=== PATIENT | male | born 1995 | race Caucasian/White ===

== ENCOUNTER 2017-06-08 15:06 | Emergency (ER) | payer OTHER ==
[~2017-06-08] VITALS: Ht 175.3 cm; Wt 78.0 kg
[2017-06-08 15:37] VITALS: BP 146/95; PULSE 96; RESP 16; TEMP 98.1; O2SAT 97
[2017-06-08] MEDS ORDERED: ZOFR8TAB4 SL (15:52)
[2017-06-08] MEDS ORDERED: TAMS5CAP PO (15:52)
[2017-06-08] MEDS ORDERED: HYDR-3366 PO (15:52)
[2017-06-08] MEDS ORDERED: SODIUM CHLOR 0.9% 1000 ML INJ 1,000 ML IV ONE (15:57)
[2017-06-08] MEDS ORDERED: MORPHINE SULFATE 4 MG/ML INJ IV PUSH ONE (16:00)
[2017-06-08] MEDS ORDERED: KETOROLAC TROMETHAMINE 30 MG/ML (IVP) VIAL IV PUSH ONE (16:00)
[2017-06-08] MEDS ORDERED: ONDANSETRON HCL 4 MG/2 ML VIAL IV PUSH ONE (16:00)
--- NOTE | 2017-06-08 16:17 | PD ---
HPI Chief Complaint: Flank/Kidney Pain Time Seen by Provider: 15:54 Travel History International Travel<30 days: No Contact w/Intl Traveler<30days: No Traveled to known affect area: No History of Present Illness HPI PATIENT COMES IN C/O RIGHT FLANK PAIN, RAD TO RLQ AREA, 8/10, ONGOING INTERMITTENTLY OVER THE PAST 5 DAYS OR SO. PATIENT DENIES ANY ALLEVIATING/ AGGRAVATING FACTORS. ALSO DENIES ANY ASSOC FACTORS SUCH FEVER/RASH/CP/HERNANDEZ/N/V /D/ NKDA PMHX:PLEURISY AND RECENTLY DX WITH KIDNEY STONE AT [facility] Past Medical History Respiratory: Yes (HX PLEURISY) Past Surgical History Surgical History: No Previous Surgery Social History Alcohol Use: No Tobacco Use: No Substance Use: No Allergies-Medications (Allergen,Severity, Reaction): Coded Allergies: No Known Allergies (Unverified , 06/08/17) Reported Meds & Prescriptions Reported Meds & Active Scripts Active Reported Zofran Odt (Ondansetron Odt) 8 Mg Tab 8 Mg SL Q8H PRN Flomax (Tamsulosin HCl) 0.4 Mg Cap 0.4 Mg PO DIRECTED [place] (Hydrocodone-Acetaminophen) 10-325 Mg Tab 1 Tab PO Q6H PRN Review of Systems General / Constitutional: No: Fever Eyes: No: Visual changes HENT: No: Headaches Cardiovascular: No: Chest Pain or Discomfort Respiratory: No: Shortness of Breath Gastrointestinal: Positive: Abdominal Pain (RLQ) Genitourinary: Positive: Flank Pain Musculoskeletal: No: Pain Skin: No Rash Neurologic: No: Weakness Psychiatric: No: Depression Endocrine: No: Polydipsia Hematologic/Lymphatic: No: Easy Bruising Physical Exam Narrative GENERAL: SKIN: Warm and dry. HEAD: Atraumatic. Normocephalic. EYES: Pupils equal and round. No scleral icterus. No injection or drainage. ENT: No nasal bleeding or discharge. Mucous membranes pink and moist. NECK: Trachea midline. No JVD. CARDIOVASCULAR: Regular rate and rhythm. RESPIRATORY: No accessory muscle use. Clear to auscultation. Breath sounds equal bilaterally. GASTROINTESTINAL: Abdomen soft, non-tender, nondistended. MUSCULOSKELETAL: Extremities without clubbing, cyanosis, or edema. No obvious deformities. NEUROLOGICAL: Awake and alert. No obvious cranial nerve deficits. Motor grossly within normal limits. Five out of 5 muscle strength in the arms and legs. Normal speech. PSYCHIATRIC: Appropriate mood and affect; insight and judgment normal. Data Data Last Documented VS Vital Signs Date Time Temp Pulse Resp B/P (MAP) Pulse Ox O2 Delivery O2 Flow Rate FiO2 06/08/17 15:37 98.1 96 16 146/95 (112) 97 Orders Orders Complete Blood Count With Diff (06/08/17 15:57) Comprehensive Metabolic Panel (06/08/17 15:57) Urinalysis - C+S If Indicated (06/08/17 15:57) Ct Abd/Pel W/O Iv Contrast (06/08/17 15:57) Ecg Monitoring (06/08/17 15:57) Iv Access Insert/Monitor (06/08/17 15:57) Ketorolac Inj (Toradol Inj) (06/08/17 16:00) Morphine Inj (Morphine Inj) (06/08/17 16:00) Ondansetron Inj (Zofran Inj) (06/08/17 16:00) Sodium Chlor 0.9% 1000 Ml Inj (Ns 1000 M (06/08/17 15:57) Lipase (06/08/17 15:57) Labs Laboratory Tests Test 06/08/17 16:05 White Blood Count 12.3 TH/MM3 Red Blood Count 4.65 MIL/MM3 Hemoglobin 14.5 GM/DL Hematocrit 42.0 % Mean Corpuscular Volume 90.4 FL Mean Corpuscular Hemoglobin 31.2 PG Mean Corpuscular Hemoglobin Concent 34.5 % Red Cell Distribution Width 12.8 % Platelet Count 204 TH/MM3 Mean Platelet Volume 7.7 FL Neutrophils (%) (Auto) 77.5 % Lymphocytes (%) (Auto) 12.0 % Monocytes (%) (Auto) 8.6 % Eosinophils (%) (Auto) 1.3 % Basophils (%) (Auto) 0.6 % Neutrophils # (Auto) 9.5 TH/MM3 Lymphocytes # (Auto) 1.5 TH/MM3 Monocytes # (Auto) 1.1 TH/MM3 Eosinophils # (Auto) 0.2 TH/MM3 Basophils # (Auto) 0.1 TH/MM3 CBC Comment DIFF FINAL Differential Comment MDM Medical Decision Making Medical Screen Exam Complete: Yes Emergency Medical Condition: Yes Medical Record Reviewed: Yes Differential Diagnosis PYELO V RENAL COLIC V APPY V COLITIS V DIVERTIC Narrative Course MILD LEUKOCYTOSIS WITHOUT MAJOR LEFT SHIFT. SIGNED OUT PENDING CT RESULTS AND CMP RESULTS TO DR BUCKLEY Diagnosis Primary Impression: ABDOMINAL PAIN Dewayne Funk MD Jun 08, 2017 16:17
[2017-06-08 16:54] LABS: AUTOMATED NEUTROPHIL # 9.5 TH/MM3 (1.8-7.7); BASOPHIL # 0.1 TH/MM3 (0-0.2); BASOPHIL % 0.6 % (0.0-2.0); EOSINOPHIL # 0.2 TH/MM3 (0-0.4); EOSINOPHIL % 1.3 % (0.0-4.0); HEMOGLOBIN 14.5 GM/DL (13.0-17.0); LYMPHOCYTE # 1.5 TH/MM3 (1.0-4.8); MEAN CELL VOLUME 90.4 FL (80.0-100.0); MEAN CORPUSCULAR HEMOGLOBIN 31.2 PG (27.0-34.0); MEAN CORPUSCULAR HGB CONC 34.5 % (32.0-36.0); MEAN PLATELET VOLUME 7.7 FL (7.0-11.0); MONO % 8.6 % (0.0-8.0); MONOCYTE # 1.1 TH/MM3 (0-0.9); NEUT % 77.5 % (16.0-70.0); PLATELET COUNT 204 TH/MM3 (150-450); RED BLOOD COUNT 4.65 MIL/MM3 (4.50-5.90); RED CELL DISTRIBUTION WIDTH 12.8 % (11.6-17.2); WHITE BLOOD COUNT 12.3 TH/MM3 (4.0-11.0)
[2017-06-08 17:06] LABS: AST (GOT) 23 U/L (15-37); BICARBONATE 29.9 MEQ/L (21.0-32.0); BLOOD UREA NITROGEN 10 MG/DL (7-18); CALCIUM 9.3 MG/DL (8.5-10.1); CHLORIDE 102 MEQ/L (98-107); CREATININE 1.48 MG/DL (0.60-1.30); GLOMERULAR FILTRATION RATE 59 ML/MIN (>89); GLUCOSE,RANDOM 96 MG/DL (74-106); SODIUM (NA) 137 MEQ/L (136-145)
[2017-06-08 17:09] LABS: ALKALINE PHOSPHATASE 66 U/L (45-117); ALT (GPT) 32 U/L (12-78); TOTAL BILIRUBIN ADULT 0.6 MG/DL (0.2-1.0); TOTAL PROTEIN 7.7 GM/DL (6.4-8.2)
--- NOTE | 2017-06-08 17:12 | RADRPT ---
EXAM DATE/TIME: 06/08/2017 16:49 [place] COMPARISON: No previous studies available for comparison. INDICATIONS : Nausea and vomiting with right side flank pain. ORAL CONTRAST: No oral contrast ingested. RADIATION DOSE: 6.39 CTDIvol (mGy) MEDICAL HISTORY : None SURGICAL HISTORY : None. ENCOUNTER: Initial ACUITY: 2 weeks PAIN SCALE: 9/10 LOCATION: Right flank TECHNIQUE: Volumetric scanning of the abdomen and pelvis was performed. Using automated exposure control and ad justment of the mA and/or kV according to patient size, radiation dose was kept as low as reasonably achievable to obtain optimal diagnostic quality images. DICOM format image data is available electro nically for review and comparison. FINDINGS: LOWER LUNGS: The visualized lower lungs are clear. LIVER: Homogeneous density without lesion. There is no dilation of the biliary tree. No calcified gallston es. SPLEEN: Normal size without lesion. PANCREAS: Within normal limits. KIDNEYS: There is mild right hydronephrosis and hydroureter caused by a 4 x 2 mm stone in the distal right ure ter located at the ureterovesical junction. An additional 2 mm nonobstructing stone is present in the right mid renal collecting system. No left renal stones are identified. No concerning renal lesions are seen on this noncontrast examination. ADRENAL GLANDS: Within normal limits. VASCULAR: There is no aortic aneurysm. BOWEL/MESENTERY: The stomach, small bowel, and colon demonstrate no acute abnormality. There is no free intraperitone al air or fluid. Appendix is normal. ABDOMINAL WALL: Within normal limits. RETROPERITONEUM: There is no lymphadenopathy. BLADDER: No wall thickening or mass. REPRODUCTIVE: Within normal limits. INGUINAL: There is no lymphadenopathy or hernia. MUSCULOSKELETAL: Within normal limits for patient age. CONCLUSION: 1. There is a 4 x 2 mm stone in the distal right ureter adjacent to the ureterovesical junction. It i s causing mild right hydronephrosis and hydroureter. 2. There is an additional 2 mm nonobstructing right renal stone. No left renal stones are present. Prabhjot Baxter MD on June 08, 2017 at 17:08 Board Certified Radiologist. This report was verified electronically.
[2017-06-08 17:21] VITALS: RESP 16
[2017-06-08 17:50] LABS: BILIRUBIN, URINE NEG (NEG); BLOOD, URINE MOD (NEG); GLUCOSE,URINE NEG (NEG); KETONE, URINE 40 mg/dL (NEG); MUCUS URINE FEW /lpf (OCC); NITRITE,URINE NEG (NEG); URINE COLOR YELLOW (YELLW/STRAW); URINE LEUKOCYTE ESTERASE NEG (NEG)
[2017-06-08] MEDS ORDERED: IBUP-232 PO (18:04)
[2017-06-08] MEDS ORDERED: PROM25TA10 PO (18:04)
--- NOTE | 2017-06-08 18:04 | PD ---
Physical Exam Date Seen by Provider: Jun 08, 2017 Time Seen by Provider: 17:00 Narrative Patient initially seen by Dr. Funk, please see his notes for further details he and his mom tells me that he had been to [facility] and had been diagnosed with renal colic, but he is having worsening vomiting and pains. Patient is here because of ongoing right flank pains,. He is here because he wants to get checked out further, is worried about other issues. A lab work has been done on patient and CAT scan is pending. Laboratory Tests Test 06/08/17 16:05 06/08/17 17:30 White Blood Count 12.3 TH/MM3 (4.0-11.0) Neutrophils (%) (Auto) 77.5 % (16.0-70.0) Monocytes (%) (Auto) 8.6 % (0.0-8.0) Neutrophils # (Auto) 9.5 TH/MM3 (1.8-7.7) Monocytes # (Auto) 1.1 TH/MM3 (0-0.9) Creatinine 1.48 MG/DL (0.60-1.30) Estimat Glomerular Filtration Rate 59 ML/MIN (>89) Lipase 64 U/L (73-393) Urine Ketones 40 mg/dL (NEG) Urine Occult Blood MOD (NEG) Urine RBC 6 /hpf (0-3) Urine Mucus FEW /lpf (OCC) Last 24 hours Impressions Abdomen/Pelvis CT 06/08/17 4517 Signed Impressions: Service Date/Time: Thursday, June 08, 2017 16:49 - CONCLUSION: 1. There is a 4 x 2 mm stone in the distal right ureter adjacent to the ureterovesical junction. It is causing mild right hydronephrosis and hydroureter. 2. There is an additional 2 mm nonobstructing right renal stone. No left renal stones are present. Prabhjot Baxter MD CAT scan did not show any signs of other acute intra-abdominal processes. His kidney stone measures 4 x 2 mm in the distal right ureter. At this point, my plan would be to release the patient with further symptomatic relief for nausea and vomiting. She did not have any further vomiting episodes in the ER and appears stable in the ER and fairly pink controlled. He is already on hydrocodone tens which I would not change at this time. Return for worsening in symptoms or new issues as needed. The plan has been discussed with him and he states understanding. Data Data Last Documented VS Vital Signs Date Time Temp Pulse Resp B/P (MAP) Pulse Ox O2 Delivery O2 Flow Rate FiO2 06/08/17 17:21 16 06/08/17 15:37 98.1 96 146/95 (112) 97 Orders Orders Complete Blood Count With Diff (06/08/17 15:57) Comprehensive Metabolic Panel (06/08/17 15:57) Urinalysis - C+S If Indicated (06/08/17 15:57) Ct Abd/Pel W/O Iv Contrast (06/08/17 15:57) Ecg Monitoring (06/08/17 15:57) Iv Access Insert/Monitor (06/08/17 15:57) Ketorolac Inj (Toradol Inj) (06/08/17 16:00) Morphine Inj (Morphine Inj) (06/08/17 16:00) Ondansetron Inj (Zofran Inj) (06/08/17 16:00) Sodium Chlor 0.9% 1000 Ml Inj (Ns 1000 M (06/08/17 15:57) Lipase (06/08/17 15:57) Ed Discharge Order (06/08/17 18:01) Labs Laboratory Tests Test 06/08/17 16:05 06/08/17 17:30 White Blood Count 12.3 TH/MM3 Red Blood Count 4.65 MIL/MM3 Hemoglobin 14.5 GM/DL Hematocrit 42.0 % Mean Corpuscular Volume 90.4 FL Mean Corpuscular Hemoglobin 31.2 PG Mean Corpuscular Hemoglobin Concent 34.5 % Red Cell Distribution Width 12.8 % Platelet Count 204 TH/MM3 Mean Platelet Volume 7.7 FL Neutrophils (%) (Auto) 77.5 % Lymphocytes (%) (Auto) 12.0 % Monocytes (%) (Auto) 8.6 % Eosinophils (%) (Auto) 1.3 % Basophils (%) (Auto) 0.6 % Neutrophils # (Auto) 9.5 TH/MM3 Lymphocytes # (Auto) 1.5 TH/MM3 Monocytes # (Auto) 1.1 TH/MM3 Eosinophils # (Auto) 0.2 TH/MM3 Basophils # (Auto) 0.1 TH/MM3 CBC Comment DIFF FINAL Differential Comment Blood Urea Nitrogen 10 MG/DL Creatinine 1.48 MG/DL Random Glucose 96 MG/DL Total Protein 7.7 GM/DL Albumin 4.0 GM/DL Calcium Level 9.3 MG/DL Alkaline Phosphatase 66 U/L Aspartate Amino Transf (AST/SGOT) 23 U/L Alanine Aminotransferase (ALT/SGPT) 32 U/L Total Bilirubin 0.6 MG/DL Sodium Level 137 MEQ/L Potassium Level 4.0 MEQ/L Chloride Level 102 MEQ/L Carbon Dioxide Level 29.9 MEQ/L Anion Gap 5 MEQ/L Estimat Glomerular Filtration Rate 59 ML/MIN Lipase 64 U/L Urine Color YELLOW Urine Turbidity CLEAR Urine pH 6.0 Urine Specific [place] 1.025 Urine Protein TRACE mg/dL Urine Glucose (UA) NEG mg/dL Urine Ketones 40 mg/dL Urine Occult Blood MOD Urine Nitrite NEG Urine Bilirubin NEG Urine Urobilinogen LESS THAN 2.0 MG/DL Urine Leukocyte Esterase NEG Urine RBC 6 /hpf Urine WBC 2 /hpf Urine Mucus FEW /lpf Microscopic Urinalysis Comment CULT NOT INDICATED MDM Medical Record Reviewed: Yes Supervised Visit with REGLA: No Diagnosis Primary Impression: Abdominal pain Additional Impression: Renal colic on right side Med/Other Pt SpecificInfo: Prescription(s) given Scripts Promethazine (Phenergan) 25 Mg Tablet 25 MG PO Q6H Y for NAUSEA OR VOMITING, #7 TAB 0 Refills Prov: Areli Mayes MD 06/08/17 Ibuprofen (Ibuprofen) 600 Mg Tab 600 MG PO Q6H Y for Pain/Inflammation, #20 TAB 0 Refills Prov: Areli Mayes MD 06/08/17 Disposition: 01 DISCHARGE HOME Condition: Stable Areli Mayes MD Jun 08, 2017 18:04
== END 2017-06-08 18:40 | disposition home or self-care (01) ==
LOC: NEPD 15:06
DX: R10.31 Right lower quadrant pain (principal); N23 Unspecified renal colic; R11.2 Nausea with vomiting, unspecified
CPT/HCPCS: 74176; 80053; 81001; 83690; 85025; 96361; 96374; 96375; 99284; J1885; J2270; J2405; J7030